=== PATIENT | female | born 1985 | race Caucasian/White ===

== ENCOUNTER 2019-05-06 14:30 | Emergency (ER) | payer BC ==
[~2019-05-06] VITALS: Ht 154.9 cm; Wt 88.5 kg
[2019-05-06 15:14] VITALS: BP_SYST 104
--- NOTE | 2019-05-06 16:25 | NUR ---
Patient to ER bed 7 to gown for evaluation. Side rails up.
--- NOTE | 2019-05-06 16:30 | NUR ---
Pt brought self to ER ambulatory, AO4, no s/s of RR distress, only c/o of labial bump w/discharge.
--- NOTE | 2019-05-06 16:39 | NUR ---
Dr Ma at bedside assessing pt
[2019-05-06] MEDS ORDERED: LIDOCAINE 1% 10 MG/ML, 20 ML MDV INJ ONE (16:45)
--- NOTE | 2019-05-06 17:18 | NUR ---
Dr Ma at bedside examining patient
[2019-05-06] MEDS ORDERED: KETOROLAC TROMETHAMINE 60 MG/2 ML VIAL IM ONE (17:30)
[2019-05-06 18:05] VITALS: BP_SYST 116
--- NOTE | 2019-05-06 18:05 | NUR ---
Patient given written and verbal discharge instructions and verbalizes understanding. ER MD discussed with patient the results and treatment provided. Patient in stable condition. ID arm band removed. Rx of KEFLEX,MOTRIN,NORCO given. Patient educated on pain management and to follow up with PMD. Pain Scale 2 . Opportunity for questions provided and answered. Medication side effect fact sheet provided.
== END 2019-05-06 18:05 | disposition home or self-care (01) ==
LOC: SED 14:30
DX: N76.4 Abscess of vulva (principal)
CPT/HCPCS: 96372; 99284